=== PATIENT | female | born 1985 | race Hispanic/Latino ===

== ENCOUNTER 2023-12-07 21:32 | Emergency (ER) | payer MEDICARE ==
[~2023-12-07] VITALS: Ht 160 cm; Wt 74.8 kg
[2023-12-08] MEDS ORDERED: IBUP-1493 PO (00:20)
[2023-12-08 00:36] VITALS: BP 138/72; PULSE 68; RESP 18; O2SAT 100
== END 2023-12-08 00:43 | disposition home or self-care (01) ==
LOC: EDH 21:32
DX: S60.011A Contusion of right thumb without damage to nail, initial encounter (principal); Z88.0 Allergy status to penicillin; W18.39XA Other fall on same level, initial encounter; Y93.89 Activity, other specified; Y92.89 Other specified places as the place of occurrence of the external cause; Y99.8 Other external cause status
CPT/HCPCS: 29125; 73140